=== PATIENT | female | born 1935 | race Caucasian/White ===

== ENCOUNTER 2016-10-20 07:58 | Observation (INO) | payer MEDICARE ==
[~2016-10-20 07:58] MED LIST: CINNAMON PO; HYGROTON 25 MG25 MG PO; MEGA RED FISH OIL PO; VITS/HERBS; [UNRECOGNIZED DRUG - OTHER] PO
[2016-10-20 08:37] LABS: BASOPHILS 0.5 %; BASOPHILS ABSOLUTE 0.03 10/3/uL (0.0-0.16); EOSINOPHILS 2.9 %; EOSINOPHILS ABSOLUTE 0.18 10/3/uL (0.0-0.53); HEMOGLOBIN 11.7 g/dL (12.0-16.0); IMMATURE GRANULOCYTES 0.2 %; IMMATURE GRANULOCYTES ABSOLUTE 0.01 10/3/uL (0.0-0.11); LYMPHOCYTES 38.5 %; LYMPHOCYTES ABSOLUTE 2.35 10/3/uL (0.67-4.30); MEAN CORPUS HGB CONC 33.9 g/dL (32.0-36.0); MEAN CORPUSCULAR HEMOGLOB 32.5 pg (26.0-34.0); MEAN CORPUSCULAR VOLUME 95.8 fL (80-100); MEAN PLATELET VOLUME 10.3 fL (9.2-13.0); MONOCYTES 10.8 %; MONOCYTES ABSOLUTE 0.66 10/3/uL (0.21-1.20); NEUTROPHILS 47.1 %; NEUTROPHILS ABSOLUTE 2.88 10/3/uL (2.02-8.40); PLATELET COUNT 152 10/3/uL (150-400); RBC DISTRIBUTION WIDTH 12.5 % (12.0-16.0); WHITE BLOOD CELLS 6.1 10/3/uL (4.5-10.5)
[2016-10-20 08:39] LABS: HEMATOCRIT 34.5 % (36.0-48.0); MANUAL DIFF NO %
[2016-10-20 08:40] LABS: PARTIAL THROMBO TIME 31.5 SEC (22.5-37.2)
[2016-10-20 08:41] LABS: PROTIME (NOT ORD) 13.3 SEC (12.0-14.5)
[2016-10-21 04:50] LABS: BASOPHILS 0.3 %; BASOPHILS ABSOLUTE 0.02 10/3/uL (0.0-0.16); EOSINOPHILS 2.6 %; EOSINOPHILS ABSOLUTE 0.15 10/3/uL (0.0-0.53); HEMATOCRIT 31.2 % (36.0-48.0); HEMOGLOBIN 10.8 g/dL (12.0-16.0); IMMATURE GRANULOCYTES 0.2 %; IMMATURE GRANULOCYTES ABSOLUTE 0.01 10/3/uL (0.0-0.11); LYMPHOCYTES 34.8 %; LYMPHOCYTES ABSOLUTE 2.04 10/3/uL (0.67-4.30); MEAN CORPUS HGB CONC 34.6 g/dL (32.0-36.0); MEAN CORPUSCULAR HEMOGLOB 33.1 pg (26.0-34.0); MEAN CORPUSCULAR VOLUME 95.7 fL (80-100); MEAN PLATELET VOLUME 10.4 fL (9.2-13.0); MONOCYTES 10.2 %; NEUTROPHILS 51.9 %; NEUTROPHILS ABSOLUTE 3.04 10/3/uL (2.02-8.40); PLATELET COUNT 148 10/3/uL (150-400); RBC DISTRIBUTION WIDTH 12.5 % (12.0-16.0); RED CELL COUNT 3.26 10/6/uL (4.0-5.6); WHITE BLOOD CELLS 5.9 10/3/uL (4.5-10.5)
[2016-10-21 04:54] LABS: MANUAL DIFF NO %
[2016-10-21 05:00] LABS: CALCIUM, SERUM 8.6 MG/DL (8.5-10.4); CHLORIDE, SERUM 112 MMOL/L (96-112); CO2 (CARBON DIOXIDE) 27 MMOL/L (24-34); GFR AFRICAN AMERICAN 37 ML/MIN (>=60); GFR NON AFRICAN AMERICAN 32 ML/MIN (>=60); GLUCOSE, SERUM 97 MG/DL (60-99); PHOSPHORUS, SERUM 4.7 MG/DL (2.5-4.5); POTASSIUM, SERUM 4.4 MMOL/L (3.5-5.3); SODIUM, SERUM 146 MMOL/L (135-148)
[2016-10-21 05:01] LABS: BUN (BLOOD UREA NITROGEN) 26 MG/DL (6-23); CREATININE 1.52 MG/DL (0.55-1.02)
[2016-10-21 19:49] LABS: % IRON SAT 29 % (20-50); FERRITIN 162 NG/ML (8-252); IRON BINDING CAPACITY 221 MCG/DL (225-410); IRON, SERUM 63 MCG/DL (35-150)
== END 2016-10-21 10:18 | disposition home or self-care (01) ==
LOC: IMGHOLD 07:58 → RADHOLD 08:03 → SSU1 17:32
PROVIDERS: Internal Medicine Nephrology
PROC: 0TB13ZX Excision of Left Kidney, Percutaneous Approach, Diagnostic (ICD-10-PCS; principal; 2016-10-20)
DX: N28.9 Disorder of kidney and ureter, unspecified (principal); Z88.1 Allergy status to other antibiotic agents; Z79.899 Other long term (current) drug therapy; Z96.641 Presence of right artificial hip joint; Z96.612 Presence of left artificial shoulder joint; Z96.651 Presence of right artificial knee joint; Z98.41 Cataract extraction status, right eye; Z98.42 Cataract extraction status, left eye
CPT/HCPCS: 50200; 77012; 80069; 82728; 82962; 83540; 83550; 85025; 85610; 85730; 88305; 88313; 88346; 88348; 88350; A9270-GY; G0378; J2250; J3010